=== PATIENT | male | born 1935 | race Caucasian/White ===

== ENCOUNTER → 2016-12-31 | Outpatient (CLI) | payer OTHER | LOC: BHFA 11:30 | PROVIDERS: ATTEND Internal Medicine Interventional Cardiology | DX: I25.10 Atherosclerotic heart disease of native coronary artery without angina pectoris (principal); E78.5 Hyperlipidemia, unspecified; I10 Essential (primary) hypertension ==

== ENCOUNTER → 2017-04-25 | Outpatient (CLI) | payer OTHER | LOC: CIMAGING 08:16 | PROVIDERS: ATTEND Internal Medicine | DX: M70.21 Olecranon bursitis, right elbow (principal) | CPT/HCPCS: 73070; G0463 ==

== ENCOUNTER → 2017-11-08 | Outpatient (CLI) | payer OTHER | LOC: BHCLAF 10:45 | PROVIDERS: ATTEND Internal Medicine Interventional Cardiology | DX: I35.9 Nonrheumatic aortic valve disorder, unspecified (principal); I10 Essential (primary) hypertension | CPT/HCPCS: 93306-PO ==

== ENCOUNTER → 2018-04-30 | Outpatient (CLI) | payer OTHER | DX: R42 Dizziness and giddiness (principal); I95.1 Orthostatic hypotension ==

== ENCOUNTER 2018-08-20 09:40 | Inpatient (IN) | payer OTHER ==
[2018-08-20] MEDS ORDERED: NS 1,000 ML IV ONE (10:10)
--- NOTE | 2018-08-20 11:37 | EDPHY ---
H & P Stated Complaint: Sent from Dr. Guaman for dehydration, nausea x 8 weeks denies vomiting Time Seen by Provider: 08/20/18 10:27 HPI/ROS: This patient presented yesterday to Dr. Villareal office-his primary care physician with complaint of nausea of [address] Guaman around some basic labs noted the patient had elevated BUN and creatinine, calling the patient's Mar recommending that he come the emergency department for evaluation of kidney failure and possible dehydration. The patient reports ongoing nausea but no other complaints. He describes good p.o. Fluid intake him surprised to find that he had elevated BUN and creatinine. ROS: Constitutional: No fevers. No fatigue HEENT: No URI symptoms or other complaints pulmonary: No shortness of breath cough or other complaints Cardiovascular: No chest pain. No palpitations or lightheadedness GI: He reports abdominal mass or distension to the lower belly for some months now that he thought might be a hernia. He denies any pain. : No flank pain. No hematuria. No dysuria. No testicular pain or swelling Integumentary: No rash Musculoskeletal: He denies any back pain . Neuro: No numbness tingling focal weakness Source: Patient Exam Limitations: No limitations - Personal History Current Tetanus Diphtheria and Acellular Pertussis (TDAP): Yes Tetanus Vaccine Date: within 10 years - Medical/Surgical History PMH: Coronary artery disease with 6 stents placed 5 years ago with no chest pain since that time Hypertension Dyslipidemia Hx Asthma: No Hx Chronic Respiratory Disease: No Hx Diabetes: No Hx Cardiac Disease: Yes Hx Renal Disease: No Hx Cirrhosis: No Hx Alcoholism: No Hx HIV/AIDS: No Hx Splenectomy or Spleen Trauma: No Other PMH: Cholesterol, Stents, HTN - Social History Smoking Status: Former smoker Alcohol Use: Occasionally Drug Use: None Additional Social History: He lives with his - Physical Exam Exam: General Appearance: Alert, no distress. Eyes: Pupils equal and round no pallor or injection. ENT, Mouth: Mucous membranes moist. Respiratory: There are no retractions, lungs are clear to auscultation. Cardiovascular: Regular rate and rhythm. Gastrointestinal: Patient has normoactive bowel sounds soft, positive lower midline belly mass the goes up past the umbilicus-he denies tenderness. Neurological in GCS 15 Skin: Warm and dry, no rashes. Musculoskeletal: Neck is supple nontender. Extremities are symmetrical, full range of motion. Psychiatric: Back: No CVA tenderness Psych: Mood and affect are normal DIFFERENTIAL DIAGNOSIS: After history and physical exam differential diagnosis was considered for acute renal failure, renal cell carcinoma, bladder cancer, lower urinary output obstruction, ureteral stone, UTI Constitutional: Initial Vital Signs Temperature (C) 36.6 C 08/20/18 09:51 Heart Rate 72 08/20/18 09:51 Respiratory Rate 16 08/20/18 09:51 Blood Pressure 166/85 H 08/20/18 09:51 O2 Sat (%) 98 08/20/18 09:51 O2 Delivery Mode Room Air Allergies/Adverse Reactions: fentanyl Allergy (Verified 08/20/18 09:54) Vomiting Home Medications: Medication Instructions Recorded Atorvastatin Calcium [Lipitor 40 05/08/15 mg (*)] Cholecalciferol (Vitamin D3) 05/08/15 [Vitamin D3] Clopidogrel Bisulfate [Plavix (*)] 05/08/15 Metoprolol Tartrate [Lopressor 50 05/08/15 mg (*)] Losartan Potassium 08/20/18 Medical Decision Making - Diagnostics EKG Interpretation: 12 lead EKG performed at 11:43 a.m. 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 Marked bilateral hydronephrosis and dilatation of the ureters down to a markedly distended bladder. Consider bladder outlet obstruction possibly from calculus at the proximal prostatic urethra. 2. 1 mm calculus also seen in the dependent aspect of the bladder. The number of bladder calculi actually decreased since the prior study. 3., Uncomplicated gallstone present within the gallbladder. Findings discussed with Trent Anderson M.D. at 11:24 hour, 08/20/2018. Imaging: Discussed imaging studies w/ fisher scallop Radiologist ED Course/Re-evaluation: Lab studies are notable for renal failure with creatinine of 3.4 and elevated BUN of 37. Electrolytes normal despite this. CBC is essentially normal. Urinalysis also normal I consult Dr. Sorenson for-Urology regarding this case. He feels very confident that a 1 mm calculus is not causing outlet obstruction. Will cover the patient for potential prostatitis with Flomax and Cipro. He is given 1st doses here. I counseled regarding the need for admission given his acute renal failure in the setting of lower urinary obstruction. The patient requested that we hold on placing the urinary catheter here so that he can more easily drive to the hospital for admission and have the urinary catheter placed at the hospital. Since the patient denies any significant pain think this is reasonable. I spoke with Tori, mid-level practitioner with the hospitalist group for [facility] accepts patient for transfer to Dr. Louis for admission to the [facility] floor - Data Points Laboratory Results: 08/20/18 10:14 POC Sodium 147 mEq/L H mEq/L (135-145) POC Potassium 3.9 mEq/L mEq/L (3.3-5.0) POC Chloride 107.0 mEq/L mEq/L (97-110) POC Total CO2 22 mEq/L mEq/L (22-31) POC BUN 37 mg/dL H mg/dL (7-23) POC Creatinine 3.4 mg/dL H mg/dL (0.7-1.3) POC Glucose 104 mg/dL H mg/dL (70-100) POC Calcium 8.7 mg/dL mg/dL (8.5-10.4) Medications Given: Discontinued Medications Ciprofloxacin (Cipro) 500 mg PO EDNOW ONE PRN Reason: Protocol Stop: 08/20/18 12:15 Last Admin: 08/20/18 12:19 Dose: 500 mg Sodium Chloride (Ns) 1,000 mls @ 0 mls/hr IV ONCE ONE PRN Reason: Wide Open Stop: 08/20/18 10:11 Last Admin: 08/20/18 10:10 Dose: 1,000 mls Metoprolol Tartrate (Lopressor) 50 mg PO EDNOW ONE Stop: 08/20/18 12:00 Last Admin: 08/20/18 12:04 Dose: 50 mg Tamsulosin HCl (Flomax) 0.4 mg PO EDNOW ONE Stop: 08/20/18 12:15 Last Admin: 08/20/18 12:19 Dose: 0.4 mg Point of Care Test Results: CBC CBC Collection Date 08/20/18 CBC Collection Time 10:10 WBC 6.7 RBC 4.05 HGB 12.3 HCT 36.3 PLT 189 Neut # 4.7 Neut 70.2 LYMPH # 1.4 LYMPH 20.7 Other WBC # 0.6 Other WBC 9.1 MCV 89.6 Chemistry 08/20/18 10:14 POC Sodium 147 mEq/L H mEq/L (135-145) POC Potassium 3.9 mEq/L mEq/L (3.3-5.0) POC Chloride 107.0 mEq/L mEq/L (97-110) POC Total CO2 22 mEq/L mEq/L (22-31) POC BUN 37 mg/dL H mg/dL (7-23) POC Creatinine 3.4 mg/dL H mg/dL (0.7-1.3) POC Glucose 104 mg/dL H mg/dL (70-100) POC Calcium 8.7 mg/dL mg/dL (8.5-10.4) Urine Dip Collection Date 08/20/18 Collection Time 10:50 Specific Ward (1.002-1.030) 1.010 PH (5.0-7.5) 5.5 Leukocytes (Negative) Trace Nitrites (Negative) Negative Protein (Negative) Negative Glucose (Negative) Negative Ketones (Negative) Negative Urobilnogen (0.2-1.0 EU) 0.2 Bilirubin (Negative) Negative Blood (Negative) Negative Departure - Departure Disposition: [facility] Acute Clinical Impression: Acute kidney injury, Lower urinary tract obstruction Hydronephrosis Qualifiers: Hydronephrosis type: unspecified Qualified Code(s): N13.30 - Unspecified hydronephrosis Condition: Fair
[2018-08-20] MEDS ORDERED: METOPROLOL TARTRATE 50 MG TAB PO ONE (11:59)
[2018-08-20] MEDS ORDERED: TAMSULOSIN HCL 0.4 MG CAP PO ONE (12:14)
[2018-08-20] MEDS ORDERED: CIPROFLOXACIN 500 MG TAB PO ONE (12:14)
[2018-08-20] MEDS ORDERED: ONDANSETRON 4 MG/2 ML VIAL IVP PRN (13:40)
[2018-08-20] MEDS ORDERED: ONDANSETRON DISINTEGRATING 4 MG TAB PO PRN (13:40)
[2018-08-20] MEDS ORDERED: HYDROmorphONE/DILAUDID 1 MG/ML INJ IVP PRN (13:40)
--- NOTE | 2018-08-20 13:58 | PDGENHP ---
History and Physical - Chief Complaint Elevated creatinine/BUN - History of Present Illness 83 y/o male presents with 8 weeks of nausea. He noted a distended abdomen but thought it was a hernia. It was not tender or bothersome to him. He has daily regular BMs and when he urinated, he felt he completely emptied his bladder. The last couple of weeks, he would "leak" urine while sleeping. He denies dysuria, hematuria, hematochezia, vomiting, diarrhea, fevers, chills, SOB, chest pains, loss of appetite. Abdominal CT w/o contrast: Bilateral hydronephrosis with dilatation of ureters down to markedly distended bladder extends above the umbilicus. Calculus measuring 7 x 3 mm traversely by 4 mm longitudinally at the origin of the prostatic urethra - the prostate does not appear to be significantly enlarged. Bladder volume at the time of the scan was 3L. Past Medical/Surgical History 1. CAD with multiple PCIs to LAD and RCA. Last cath in 2012, found 40% instent restenosis of RCA 2. Hypertension 3. Hyperlipidemia 4. Pre-diabetes 5. Moderate aortic regurgitation 6. Left subclavian stenosis Social 1. , lives with in [place] 2. Former smoker, no illicit drug use. Drinks one Red Apple Cider a day. 3. Exercises by walking while playing golf Vitals 149/77 71 HR 14 Respirations 98% RA 36.5c History Information - Allergies/Home Medication List Allergies/Adverse Reactions: fentanyl Allergy (Verified 08/20/18 09:54) Vomiting Home Medications: Atorvastatin Calcium [Lipitor 40 mg (*)] 05/08/15 [Last Taken 05/08/15] Cholecalciferol (Vitamin D3) [Vitamin D3] 05/08/15 [Last Taken 05/08/15] Clopidogrel Bisulfate [Plavix (*)] 05/08/15 [Last Taken 05/08/15] Metoprolol Tartrate [Lopressor 50 mg (*)] 05/08/15 [Last Taken 05/08/15 08:00] Losartan Potassium 08/20/18 [Last Taken Unknown] I have personally reviewed and updated: family history, medical history, social history, surgical history Past Medical History: See HPI List - Surgical History Additional surgical history: See HPI list - Family History Positive for: CAD Additional family history: Mother and father. Both parents have from [place] - Social History Smoking Status: Former smoker Alcohol Use: Occasionally Drug Use: None Review of Systems Review of Systems: ROS: 10pt was reviewed & negative except for what was stated in HPI & below Constitutional: Reports: no symptoms EENMT: Reports: no symptoms Cardiac: Reports: no symptoms Respiratory: Reports: no symptoms Gastrointestinal: Reports: abdominal distention, nausea Genitourinary: Reports: incontinence Muscolosketal: Reports: no symptoms Skin: Reports: no symptoms Neurological: Reports: no symptoms Hematologic/Lymphatic: Reports: no symptoms Immunologic/Allergy: Reports: other (Fentanyl) Physical Exam Physical Exam: Lab data and imaging reviewed Creatinine/BUN: 3.4/37 RBC: 3.9 Hgb/Hct: 11.7/35.[address] imaging: see HPI Temp Pulse Resp BP Pulse Ox 36.5 C 58 L 16 139/80 H 95 08/20/18 13:25 08/20/18 13:25 08/20/18 13:25 08/20/18 13:25 08/20/18 13:25 Constitutional: no apparent distress, appears nourished, not in pain Eyes: PERRL, anicteric sclera, EOMI Ears, Nose, Mouth, Throat: moist mucous membranes, hearing normal, ears appear normal, no oral mucosal ulcers Cardiovascular: regular rate and rhythym, no murmur, rub, or gallop, No edema Peripheral Pulses: 2+: dorsalis-pedis (R) (Radial 2+), dorsalis-pedis (L) ( Radial 2+) Respiratory: no respiratory distress, no rales or rhonchi, clear to auscultation Gastrointestinal: normoactive bowel sounds, soft, non-tender abdomen, distension Genitourinary: no bladder fullness, no bladder tenderness Skin: warm, normal color, no rashes or abrasions, no fluctuance, no induration, No mottled Musculoskeletal: full muscle strength, no muscle tenderness, normal joint ROM, no joint effusions Neurologic: AAOx3, sensation intact bilaterally, CN II-XII Intact Psychiatric: interacting appropriately, not anxious, not encephalopathic, thought process linear Lymph, Heme, Immunologic: no cervical LAD, no supraclavicular LAD Lab Data & Imaging Review POC Sodium 147 mEq/L (135-145) H 08/20/18 10:14 POC Potassium 3.9 mEq/L (3.3-5.0) 08/20/18 10:14 POC Chloride 107.0 mEq/L (97-110) 08/20/18 10:14 POC Total CO2 22 mEq/L (22-31) 08/20/18 10:14 POC BUN 37 mg/dL (7-23) H 08/20/18 10:14 POC Creatinine 3.4 mg/dL (0.7-1.3) H 08/20/18 10:14 POC Glucose 104 mg/dL (70-100) H 08/20/18 10:14 POC Calcium 8.7 mg/dL (8.5-10.4) 08/20/18 10:14 Assessment & Plan Plan: 83 y/o male presents with 8 weeks worth of nausea and nighttime urine incontinence. After visiting with his PCP re: this, it was revealed he was in PARRISH with creatinine of 3.[address] imaginL bladder volume and a sizable calculus causing obstruction at the prostate urethra. 1.Post-renal Acute kidney injury secondary to lower urinary tract obstruction ( prostrate urethra) -Urology consulted and aware: Spoke with Dr. Blake re: case. Dr. Robin called in and will see patient today -Indwelling catheter; RN placed; draining freely clear yellow urine -UA -INR -NPO status right now -Flomax initiated today; daily intake -CBC/CMP tomorrow 2.Hydronephrosis secondary to lower urinary tract obstruction -See above 3. Hypertension -May continue metoprolol -Hold Losartan d/t PARRISH 4. CAD w/ stents -Hold Plavix for now; potential for surgery? -Dr. Tyron lopez MD, he is to have a repeat ECHO November 2018 5. Hyperlipidemia -May continue atorvastatin 6. Pre-diabetes: a1c on 08/19/18 was 6.1% Diet: NPO VTE ppx: SCDs Code: Full Dispo: Admit to obs
[2018-08-20] MEDS ORDERED: LIDOCAINE 2% JELLY 20 ML (UROJECT) UR ONE (14:45)
--- NOTE | 2018-08-20 15:37 | ASMTCMCOM ---
CM Note CM Note Notes: Chart reviewed for discharge planning purposes. 83 Year old male admitted secondary to 8 weeks of nausea and abdominal distention presenting with PARRISH with hydronephrosis. He normally lives independently with his in [place]. He drove here from the [facility] and walked onto the unit without devices/assistance. CM to follow for needs, Plan: TBD Date Signed: 08/20/2018 03:36 PM Electronically Signed By:Christi Navarrete RN
--- NOTE | 2018-08-20 15:53 | HOSPPROG ---
Hospitalist Progress Note Assessment/Plan: I have seen and evaluated patient myself. I agree with the assessment and plan outlined by Freda RODRÍGUEZ in her separate note. Objective: Vital Signs Temp Pulse Resp BP Pulse Ox 36.5 C 71 14 149/77 H 98 08/20/18 13:25 08/20/18 14:40 08/20/18 14:40 08/20/18 14:40 08/20/18 14:40 08/19/18 08/20/18 08/21/18 05:59 05:59 05:59 Intake Total 1240 Output Total 2475 Balance -1235 ICD10 Worksheet Patient Problems: Problems Problem Status Onset Acute kidney injury Acute Hydronephrosis Acute Lower urinary tract obstruction Acute CAD - Coronary arteriosclerosis Active Hyperlipidemia Active
[2018-08-20 16:42] LABS: INR 1.19 (0.83-1.16); PROTIME(PATIENT) 15.3 SEC (12.0-15.0)
[2018-08-20] MEDS: ACETAMINOPHEN 325 MG TAB PO PRN (18:29)
[2018-08-20] MEDS ORDERED: TEARS/DEXTRAN 70/HYPROMELLOSE 15 ML OPHT.BTL EACHEYE PRN (19:06)
[2018-08-20] MEDS: METOPROLOL SUCCINATE XR 50 MG TAB PO SCH (20:25)
[2018-08-20] MEDS: MELATONIN 3 MG TAB PO SCH (20:26)
[2018-08-20] MEDS: ATORVASTATIN CALCIUM 40 MG TAB PO SCH (20:26)
[2018-08-21] MEDS: ACETAMINOPHEN 325 MG TAB PO PRN ×3 (00:16→20:07)
--- NOTE | 2018-08-21 04:53 | GCON ---
DATE OF CONSULTATION: 08/20/2018 REASON FOR CONSULTATION: Acute renal failure, bilateral hydronephrosis, urinary retention. HISTORY OF PRESENT ILLNESS: This is a pleasant 83-year-old male who was sent to the emergency room a fter an elevated creatinine finding on a blood test at his primary care doctor/Dr. Guaman's office. He said he notes that his belly was distended, but he was not having pain or discomfort. He was saying that he was leaking a little bit of urine at night while sleeping, which is new for him, in the last few weeks, but otherwise his urinary symptoms remained relatively unchanged. He had a CT of the pel vis done that did show bilateral hydronephrosis, distended bladder, holding about 3 L of urine, along with a prostate stone, 7 x 3 mm, possibly at the prostatic urethra. PAST MEDICAL HISTORY AND SURGICAL HISTORY: CAD with multiple PCIs to LAD and RCA, left cath in 2012, hypertension, hyperlipidemia, prediabetes, moderate aortic regurgitation, left subclavian stenosis. SOCIAL HISTORY: , lives with in [place]. She is home currently with pneumonia. Forme r smoker. No drug use. Drinks 1 red apple cider a day. Exercises while walking or golfing. ALLERGIES: Fentanyl. HOME MEDICATIONS: Atorvastatin, vitamin D, Plavix, Lopressor, losartan. FAMILY HISTORY: Positive for coronary artery disease and MIs. PHYSICAL EXAMINATION: VITAL SIGNS: Blood pressure 149/77, heart rate 71, respirations 14, O2 98 on room air, temperature 36.5. GENERAL: This is ia well-developed, well-nourished male, in no acute di stress. HEENT: Normocephalic, atraumatic. Extraocular movements intact. NECK: Supple. No lympha denopathy. Trachea midline. RESPIRATORY: No accessory respiratory muscle use. CARDIAC: Regular r ate and rhythm. No lower extremity edema. No obvious JVD. ABDOMEN: Soft, nondistended, nontender to palpation. No hepatosplenomegaly. Normal bowel sounds. GI: No CVA tenderness. No bladder dist ention or tenderness noted. He has a Sawyer catheter in place draining light yellow urine into a Fole y catheter bag. INTEGUMENT: No obvious rashes or lesions. MUSCULOSKELETAL: The patient is examine d while supine, but moving upper extremities without difficulty. NEURO: Alert and oriented. Affect appropriate to situation. LABORATORIES: Sodium 147, potassium 3.9, chloride 107, BUN 37, creatinine 3.4, glucose 104, calcium 8.7. Urinalysis was positive for blood, 3-[address] abdomen and pelvis was reviewed personally by myself along with Dr. Robin and noted in HPI. ASSESSMENT AND PLAN: Hydronephrosis, acute renal failure, urinary retention. Sawyer catheter has bee n placed at this time and patient no longer has abdominal distention, is comfortable, although he did not have significant discomfort before Sawyer catheter was placed, which indicates that this might be a long-term ongoing issue. At this point, recommend that we repeat a BMP in the morning and conside r the need for nephrostomy tubes based upon repeat BMP and possible repeat renal ultrasound. Patient understands. I am concerned that he may need a Sawyer catheter or intermittent self-catheterization long-term, and at this point he is focused on getting better, in his words. /[id number]/MODL
[2018-08-21 05:15] LABS: PLATELET COUNT 155 10^3/uL (150-400)
--- NOTE | 2018-08-21 07:06 | SOAPPROG ---
<Moustapha Robin - Last Filed: 08/21/18 07:04> SOAP Progress Note Assessment/Plan: Assessment: Hydronephrosis Acute Creat improving, continue present drainage and assess in future Lower urinary tract obstruction Acute assess in furture yet leave denis in for time being Plan: continue care 08/21/18 07:04 Objective: Vital Signs Temp Pulse Resp BP Pulse Ox 36.6 C 63 14 146/66 H 97 08/21/18 05:25 08/21/18 05:25 08/21/18 05:25 08/21/18 05:25 08/21/18 05:25 Laboratory Results 08/21/18 04:59 08/21/18 04:59 08/20/18 08/21/18 08/22/18 05:59 05:59 05:59 Intake Total 2390 Output Total 7275 Balance -4885 PT 15.3 SEC (12.0-15.0) H 08/20/18 16:10 INR 1.19 (0.83-1.16) H 08/20/18 16:10 ICD10 Worksheet Patient Problems: Problems Problem Status Onset Acute kidney injury Acute Hydronephrosis Acute Lower urinary tract obstruction Acute CAD - Coronary arteriosclerosis Active Hyperlipidemia Active <Chelo Almonte - Last Filed: 08/21/18 13:16> SOAP Progress Note Assessment/Plan: Assessment: as above Plan: Will leave in denis and arrange cysto as outpatient to evaluate for possible turp/cystolithopaxy. Patient requests i discuss with his son in law, and will be happy to do so once i have his contact info. 08/21/18 13:14 Subjective: tolerating catheter Objective: Vital Signs Temp Pulse Resp BP Pulse Ox 36.8 C 56 L 16 131/67 H 97 08/21/18 12:47 08/21/18 12:47 08/21/18 12:47 08/21/18 12:47 08/21/18 12:47 Laboratory Results 08/21/18 04:59 08/21/18 04:59 08/20/18 08/21/18 08/22/18 05:59 05:59 05:59 Intake Total 2390 500 Output Total 7275 750 Balance -4885 -250 PT 15.3 SEC (12.0-15.0) H 08/20/18 16:10 INR 1.19 (0.83-1.16) H 08/20/18 16:10 Physical Exam - Physical Exam General Appearance: alert, no apparent distress Abdomen: non-tender Male Genitalia: other (yellow urine in catheter bag)
--- NOTE | 2018-08-21 09:24 | HOSPPROG ---
Hospitalist Progress Note Assessment/Plan: 83 y/o male presents with 3L urinary retention with SWARTZ and PARRISH PARRISH 2/2 SWARTZ - 7 mm prostatic stone. Now draining well with denis. Discussed with Dr. Robin, who suspects he'll need cystoscopy and probable surgical intervention for his prostate once his Cr improves. Cr trending down. -cont denis, outpt f/u with urology for cystoscopy and definitive management of prostate stone -cont to trend Cr -cont flomax Hydronephrosis secondary to lower urinary tract obstruction -anticipate resolution with denis decompression Hypertension -continue metoprolol -Hold Losartan d/t PARRISH CAD w/ stents -Hold Plavix for now; potential for surgery? -Dr. Tyron lopez MD, he is to have a repeat ECHO November 2018 Hyperlipidemia -continue atorvastatin Pre-diabetes: a1c on 08/19/18 was 6.1% Diet: Cardiac VTE ppx: SCDs Code: Full Dispo: change to inpt for ongoing management of PARRISH Subjective: Pt feels much better. No abdominal pain, N/V. No fevers / chills. Tolerating po. Objective: Vital Signs Temp Pulse Resp BP Pulse Ox 36.3 C 66 16 143/71 H 95 08/21/18 07:23 08/21/18 07:23 08/21/18 07:23 08/21/18 07:23 08/21/18 07:23 Laboratory Results 08/21/18 04:59 08/21/18 04:59 08/20/18 08/21/18 08/22/18 05:59 05:59 05:59 Intake Total 2390 Output Total 7275 Balance -4885 PT 15.3 SEC (12.0-15.0) H 08/20/18 16:10 INR 1.19 (0.83-1.16) H 08/20/18 16:10 - Physical Exam Constitutional: no apparent distress Eyes: PERRL Ears, Nose, Mouth, Throat: moist mucous membranes Cardiovascular: regular rate and rhythym Respiratory: no respiratory distress, clear to auscultation Gastrointestinal: normoactive bowel sounds, soft, non-tender abdomen Skin: warm Musculoskeletal: full muscle strength Neurologic: AAOx3 Psychiatric: interacting appropriately ICD10 Worksheet Patient Problems: Problems Problem Status Onset Acute kidney injury Acute Hydronephrosis Acute Lower urinary tract obstruction Acute CAD - Coronary arteriosclerosis Active Hyperlipidemia Active
[2018-08-21] MEDS: METOPROLOL SUCCINATE XR 50 MG TAB PO SCH ×2 (09:25→20:08)
[2018-08-21] MEDS: TAMSULOSIN HCL 0.4 MG CAP PO SCH (09:25)
--- NOTE | 2018-08-21 10:28 | ASMTCMCOM ---
CM Note CM Note Notes: Chart reviewed for discharge planning purposes. Kidney function improving and patient reports he is feeling better. Changed to inpatient to monitor his kidney failure. Normally independent with ADL's and lives with his in [place], to follow for needs. Plan: TBD Date Signed: 08/21/2018 10:27 AM Electronically Signed By:Christi Navarrete RN
--- NOTE | 2018-08-21 13:51 | PDMN ---
Medical Necessity Medical necessity: Pt meets IP criteria as of 08/21/2018 per and ZULEMA [id number] ( Renal failure, acute); est los > 2 mn for ongoing tx and management of urinary retention with hydronephrosis due to bilateral outlet obstruction (7 mm prostate stone) causing a 3 fold rise in serum creatinine (3.4) from baseline ( 1.0); requiring urology consultation with planned surgical intervention, denis catheterization, serial labs, and pain management.
[2018-08-21] MEDS: MELATONIN 3 MG TAB PO SCH (20:07)
[2018-08-21] MEDS: ATORVASTATIN CALCIUM 40 MG TAB PO SCH (20:08)
[2018-08-22] MEDS: TAMSULOSIN HCL 0.4 MG CAP PO SCH (08:40)
[2018-08-22] MEDS: METOPROLOL SUCCINATE XR 50 MG TAB PO SCH (08:40)
--- NOTE | 2018-08-22 09:00 | SOAPPROG ---
SOAP Progress Note Assessment/Plan: Assessment/plan: ARF improving slowly. Will leave denis in place. F/U outpatient for cystoscopy. Plan was discussed in detail with son in law as requested by patient. 08/22/18 08:59 Subjective: Doing well Objective: Vital Signs Temp Pulse Resp BP Pulse Ox 36.6 C 64 16 130/56 H 97 08/22/18 08:54 08/22/18 08:54 08/22/18 08:54 08/22/18 08:54 08/22/18 08:54 Laboratory Results 08/22/18 04:50 08/21/18 08/22/18 08/23/18 05:59 05:59 05:59 Intake Total 1150 Output Total 3500 Balance -2350 PT 15.3 SEC (12.0-15.0) H 08/20/18 16:10 INR 1.19 (0.83-1.16) H 08/20/18 16:10 Physical Exam - Physical Exam General Appearance: alert, no apparent distress Respiratory: normal breath sounds Male Genitalia: other (clear urine in denis) Skin: normal color ICD10 Worksheet Patient Problems: Problems Problem Status Onset Acute kidney injury Acute Hydronephrosis Acute Lower urinary tract obstruction Acute CAD - Coronary arteriosclerosis Active Hyperlipidemia Active
[2018-08-22 12:21] VITALS: BP 115/57
--- NOTE | 2018-08-22 14:29 | PDIAF ---
- Diagnosis Diagnosis: bladder outlet obstruction with denis Code Status: Full Code - Medication Management Discharge Medications: electronically signed and located in the Home Medication List. PICC Care - Routine: N/A - Orders Services needed: Home Care, Registered Nurse Home Care Face to Face: I certify that this patient was under my care and that I had the required [id number] encounter meeting the encounter requirements on the discharge day. My findings support the fact that the patient is homebound as defined in Home Care Face to Face Continued: CMS Chapter 7 Medicare Benefits Manual 30.1.1 , The condition of the patient is such that there exists a normal inability to leave home and consequently, leaving home would require a considerable and taxing effort. Diet Recommendation: no restrictions on diet Additional Instructions: HOLD the Plavix until you see Dr. Robin next week, as you may need a procedure. Follow up with Dr. Robin early next week and you should have a basic metabolic panel drawn at that time to recheck your creatinine (kidney function) . HOLD the Losartan due to the kidney problems. I have not replaced this with anything else because your blood pressure is currently normal. Follow up with your PCP to have your BP checked next week. - Labs/Radiology BMP Date: 08/25/18 (results to Dr. Moustapha Robin urologist) - Follow Up Care Current Providers and Referrals: Mosutapha Robin MD [Medical Doctor] - Mychal Guaman MD [Primary Care Provider] - As per Instructions
--- NOTE | 2018-08-22 14:42 | ASMTLACE ---
LACE Length of stay for Answers: 1 day current admission Acuity / Level of Answers: Yes Care: Did the patient have an inpatient admission? Comorbidities - select Answers: Coronary Artery Disease all that apply Diabetes (uncontrolled or controlled) Other Notes: HTN; HLD # of Emergency department Answers: 1-2 visits in the last 6 months Score: 9 Date Signed: 08/22/2018 02:41 PM Electronically Signed By:Jacquie Riddle RN
--- NOTE | 2018-08-22 14:43 | ASMTDCNOTE ---
Case Management Discharge Discharge Order Complete? Answers: Yes Patient to Obtain Answers: Independently Medications Transportation Arranged Answers: Family/Friends Discharge Comments Notes: Patient declined home health RN. His daughter is an RN and is available to help. He is discharging home independently. Date Signed: 08/22/2018 02:42 PM Electronically Signed By:Jacquie Riddle RN
--- NOTE | 2018-08-22 18:17 | CPEKG ---
Test Reason : OPEN Blood Pressure : / mmHG Vent. Rate : 063 BPM Atrial Rate : 062 BPM P-R Int : 162 ms QRS Dur : 089 ms QT Int : 463 ms P-R-T Axes : 051 008 043 degrees QTc Int : 475 ms Sinus rhythm Anteroseptal infarct, old Confirmed by Trent Anderson ([id number]) on 08/22/2018 6:16:20 PM Referred By: Confirmed By:Trent Anderson
--- NOTE | 2018-08-23 07:21 | GDS ---
DISCHARGE DIAGNOSES: 1. Acute kidney injury secondary to bladder outlet obstruction. 2. 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 3. Hydronephrosis secondary to bladder outlet obstruction, decompressed with Sawyer catheter. 4. Hypertension. 5. Coronary artery disease, stable. 6. Hyperlipidemia. 7. Prediabetes. CONSULTANTS: Dr. Moustapha Robin, Urology. IMAGING STUDY: Abdomen, pelvis CT August 20, 2018, showed marked bilateral hydronephrosis and dilat ion of the ureters down to a markedly distended bladder as well as calculus at the origin of the pros tatic urethra measuring 7 x 3 mm without significant prostatic enlargement. HISTORY OF DETAILS: Please see history and physical dated August 20, 2018. In brief, Mr. Zhu is an 83-year-old male with a history of coronary artery disease, hypertension, hyperlipidemia who pres ented to the emergency department with 8 weeks of nausea and a distended abdomen. He was found to hair ve acute kidney injury with a creatinine of 3.4. CT imaging revealed bilateral hydronephrosis with a distended bladder. Sawyer catheter was obtained, and 3 L was drained from his bladder. He was admit doug to the hospital for further management. HOSPITAL COURSE: Patient was admitted to the Med/Surg Urology Unit. As above, his bladder was decom pressed with a Sawyer catheter. Urology consult was obtained. Flomax was initiated. He had signific ant diuresis after relief of his post-renal obstruction. His creatinine has slowly trended down from 3.4 to 2.6. Urology consult has recommended that he discharge home with his Sawyer catheter and will have close followup with Urology early next week. He will have a repeat basic metabolic panel drawn on Saturday via his home health nurse with results to Dr. Robin. If his creatinine remains elevated, his urology team will follow up with repeat renal ultrasound. Once his acute kidney injury resolves, he will likely need to undergo prostatic intervention for the stone that may have been contributing to his obstructive process. The patient is taking excellent p.o., is maintaining hydration and wishe s to discharge home. DISPOSITION: Patient is discharged home in stable condition with Sawyer catheter and home health RN s ercleve. DISCHARGE MEDICATIONS: Please see [facility] completed outpatient medication list. New medications on discharge include Flomax 0.4 mg p.o. daily, #30, no refills. I have advised him to hold his Plavix until he has followed with Urology early next week as he may undergo intervention. He is also instru cted to hold his losartan given his acute kidney injury. I did not replace this with an alternate ag ent as he was normotensive prior to discharge. He is to follow up with his primary care provider for repeat blood pressure check and consideration of an alternative agent such as Norvasc if he has pers istently elevated blood pressures while off his losartan. It is reasonable for him to consider resum ing his losartan if and when his renal function normalizes. FOLLOWUP: 1. Dr. Moustapha Robin Urology within 3-[address] Mychal Guaman, primary care, for followup on his blood pressure. /[id number]/MODL
== END 2018-08-22 15:06 | disposition home or self-care (01) | DRG 684 ==
LOC: CED 09:40 → CEDHOLD 12:15 → F1N 14:18 → OBSVTOIN 08-21 09:27
PROVIDERS: ADMIT Internal Medicine; ATTEND Internal Medicine
PROC: 0T9B70Z Drainage of Bladder with Drainage Device, Via Natural or Artificial Opening (ICD-10-PCS; principal; 2018-08-20)
DX: N17.9 Acute kidney failure, unspecified (principal); N42.0 Calculus of prostate; N13.39 Other hydronephrosis; N32.0 Bladder-neck obstruction; I10 Essential (primary) hypertension; I25.10 Atherosclerotic heart disease of native coronary artery without angina pectoris; E78.5 Hyperlipidemia, unspecified; R73.03 Prediabetes; Z87.891 Personal history of nicotine dependence
CPT/HCPCS: 36415-PO; 74176-PO; 80048-PO; G0378